=== PATIENT | male | born 1990 | race Asian ===

== ENCOUNTER 2017-12-26 03:02 | Inpatient (IN) | payer MEDICAID ==
[~2017-12-26] VITALS: Ht 175.3 cm; Wt 68.1 kg
[2017-12-26] MEDS ORDERED: normal saline 1000ML IV soln IVB ONE (03:30)
[2017-12-26] MEDS ORDERED: ondansetron/PF 4mg/2ml inj IV ONE (03:30)
[2017-12-26] MEDS ORDERED: morphine 4 MG/ML inj SYRINge IV PRN (03:30)
[2017-12-26 03:46] LABS: CLARITY,URINE CLEAR (Clear); COLOR,URINE YELLOW (Yellow); GLUCOSE, URINE NEGATIVE (Neg); KETONES,URINE 15 mg/dl (Neg); LEUKOCYTE ESTERASE ,URINE NEGATIVE (Neg); NITRITES, URINE NEGATIVE (Neg); OCCULT BLOOD,URINE NEGATIVE (Neg); PROTEIN,URINE NEGATIVE (Neg); UA COLLECTION TYPE CLN CATCH MIDSTREAM
[2017-12-26 03:53] LABS: BASOPHILS # (AUTO) 0.1 X10'3 (0-0.2); BASOPHILS % (AUTO) 0.6 % (0-1); EOSINOPHILS % (AUTO) 0.1 % (0-6); HEMOGLOBIN 15.1 g/dl (14.0-17.9); LYMPHOCYTES # (AUTO) 1.2 X10'3 (1.1-4.8); MEAN CORPUSCULAR HEMOGLOBIN 29.3 PG (27.0-31.0); MEAN CORPUSCULAR HGB CONC 34.3 % (33.0-36.5); MEAN CORPUSCULAR VOLUME 85.3 FL (78-98); MEAN PLATELET VOLUME 8.1 FL (7.4-10.4); MONOCYTES % (AUTO) 8.4 % (2-12); NEUTROPHILS # (AUTO) 9.9 X10'3 (1.8-7.7); NEUTROPHILS % (AUTO) 80.9 % (42-75); PLATELET COUNT 257 X10'3 (140-440); RED BLOOD COUNT 5.16 X10'6 (4.70-6.10); RED CELL DISTRIBUTION WIDTH 11.6 % (11.5-14.5); WHITE BLOOD COUNT 12.3 X10'3 (4.5-11.0)
[2017-12-26 04:08] LABS: ALANINE AMINOTRANSFERASE 21 U/L (12-78); ALBUMIN 3.5 G/DL (3.4-5.0); ALBUMIN/GLOBULIN RATIO 0.8 (1.1-1.5); ALKALINE PHOSPHATASE 78 IU/L (46-116); ANION GAP 8 (8-16); ASPARTATE AMINO TRANSFERASE 17 U/L (10-37); BILIRUBIN,TOTAL 0.8 MG/DL (0.1-1.0); BLOOD UREA NITROGEN 14 MG/DL (7-18); BUN/CREATININE RATIO 12.1 (5.4-32.0); CALCIUM 8.9 MG/DL (8.5-10.1); CHLORIDE 99 MMOL/L (99-107); CREATININE 1.16 MG/DL (0.60-1.10); GLUCOSE 117 MG/DL (70-104); LIPASE 77 U/L (73-393); POTASSIUM 4.2 MMOL/L (3.5-5.1); SODIUM 135 MMOL/L (135-145); TOTAL CARBON DIOXIDE 28.1 MMOL/L (24-32); TOTAL PROTEIN 7.8 G/DL (6.4-8.2); eGFR 76 ML/MIN
[2017-12-26] MEDS ORDERED: piperacillin/tazo 4.5gm/100ml 100 ML IV SCH (04:10)
[2017-12-26] MEDS ORDERED: NAPR220T67 PO (04:23)
[2017-12-26] MEDS ORDERED: morphine 2 MG/ML inj. syringe IV PRN (05:15)
[2017-12-26] MEDS ORDERED: ondansetron/PF 4mg/2ml inj IV PRN (05:15)
[2017-12-26] MEDS ORDERED: mag hydrox/Alum hydrox/simeth 30ml oral suspension PO PRN (05:15)
[2017-12-26] MEDS ORDERED: HYDROmorphone 1 mg/ml syringe IV PRN ×2 (05:15)
[2017-12-26] MEDS ORDERED: HYDROcodone/acetaminophen 5mg/325mg tablet PO PRN (05:15)
[2017-12-26] MEDS ORDERED: acetaminophen 325mg tablet PO PRN (05:15)
[2017-12-26] MEDS ORDERED: HYDROcodone/acetaminophen 10/325mg tab PO PRN (05:15)
[2017-12-26] MEDS ORDERED: acetaminophen 650mg rectal suppository RC PRN (05:15)
[2017-12-26] MEDS ORDERED: bisacodyl 10mg suppository rectal RC PRN (05:15)
[2017-12-26] MEDS ORDERED: magnesium hydroxide 30ml (MOM) UD suspension PO PRN (05:15)
[2017-12-26] MEDS ORDERED: diphenhydrAMINE 50 mg/ml inj IV PRN (05:15)
[2017-12-26] MEDS ORDERED: diphenhydrAMINE 25mg capsule PO PRN (05:15)
[2017-12-26] MEDS: normal saline 1000ml 1,000 ML IV SCH ×2 (05:49→17:21)
[2017-12-26] MEDS: pantoprazole 40 MG vial IV SCH (07:41)
[2017-12-26 07:54] VITALS: BP 117/69
[2017-12-26] MEDS: docusate sod 100mg capsule PO SCH ×2 (08:27→19:55)
[2017-12-26 12:00] VITALS: BP 108/60
[2017-12-26] MEDS: piperacillin/tazo 3.375gm/50ml 50 ML IV SCH ×2 (12:08→19:55)
[2017-12-26] MEDS: morphine 2 MG/ML inj. syringe IV PRN ×2 (12:19→17:29)
[2017-12-26] MEDS: acetaminophen 325mg tablet PO PRN (16:08)
[2017-12-26 19:50] VITALS: BP 109/63
[2017-12-26 23:44] VITALS: BP 107/60
[2017-12-27] VITALS (16 sets, daily range): BP systolic 99–130; BP diastolic 61–82
[2017-12-27] MEDS: normal saline 1000ml 1,000 ML IV SCH ×3 (02:38→21:29)
[2017-12-27] MEDS: piperacillin/tazo 3.375gm/50ml 50 ML IV SCH ×3 (03:40→21:10)
[2017-12-27 04:43] LABS: BASOPHILS % (AUTO) 0.1 % (0-1); EOSINOPHILS % (AUTO) 0 % (0-6); HEMATOCRIT 38.6 % (42.0-52.0); HEMOGLOBIN 13.1 g/dl (14.0-17.9); LYMPHOCYTES # (AUTO) 0.7 X10'3 (1.1-4.8); LYMPHOCYTES % (AUTO) 7.4 % (21-51); MEAN CORPUSCULAR HGB CONC 33.9 % (33.0-36.5); MEAN CORPUSCULAR VOLUME 85.5 FL (78-98); MEAN PLATELET VOLUME 8.3 FL (7.4-10.4); MONOCYTES % (AUTO) 9.7 % (2-12); NEUTROPHILS # (AUTO) 8.2 X10'3 (1.8-7.7); NEUTROPHILS % (AUTO) 82.8 % (42-75); PLATELET COUNT 232 X10'3 (140-440); RED BLOOD COUNT 4.51 X10'6 (4.70-6.10); RED CELL DISTRIBUTION WIDTH 11.5 % (11.5-14.5); WHITE BLOOD COUNT 9.9 X10'3 (4.5-11.0)
[2017-12-27 04:55] LABS: ALANINE AMINOTRANSFERASE 14 U/L (12-78); ALBUMIN 2.6 G/DL (3.4-5.0); ALBUMIN/GLOBULIN RATIO 0.7 (1.1-1.5); ALKALINE PHOSPHATASE 74 IU/L (46-116); ANION GAP 12 (8-16); ASPARTATE AMINO TRANSFERASE 11 U/L (10-37); BILIRUBIN,TOTAL 0.9 MG/DL (0.1-1.0); BLOOD UREA NITROGEN 12 MG/DL (7-18); BUN/CREATININE RATIO 11.5 (5.4-32.0); CALCIUM 8.2 MG/DL (8.5-10.1); CHLORIDE 101 MMOL/L (99-107); CREATININE 1.04 MG/DL (0.60-1.10); GLUCOSE 90 MG/DL (70-104); POTASSIUM 3.8 MMOL/L (3.5-5.1); SODIUM 136 MMOL/L (135-145); TOTAL CARBON DIOXIDE 22.9 MMOL/L (24-32); TOTAL PROTEIN 6.5 G/DL (6.4-8.2); eGFR 86 ML/MIN
[2017-12-27] MEDS: pantoprazole 40 MG vial IV SCH (07:51)
[2017-12-27] MEDS: docusate sod 100mg capsule PO SCH ×2 (07:52→21:10)
[2017-12-27] MEDS: acetaminophen 325mg tablet PO PRN (07:58)
[2017-12-27 10:45] LABS: PRE OP INR 1.3 INR; PRE OP PROTIME 13.4 SECONDS (9.0-12.0)
[2017-12-27] MEDS ORDERED: BUPIVAcaine/PF 2.5mg/ml (0.25%) 10ml vial ONE (12:49)
[2017-12-27] MEDS ORDERED: ringers solution, lacted 1,000 ML IV SCH (12:52)
[2017-12-27] MEDS ORDERED: meperidine/PF 25mg/ml syringe IV PRN ×2 (12:55)
[2017-12-27] MEDS ORDERED: ondansetron/PF 4mg/2ml inj IV PRN (12:55)
[2017-12-27] MEDS ORDERED: labetalol 20mg/4ml (5mg/ml) syringe IV PRN (12:55)
[2017-12-27] MEDS ORDERED: hydrALAZINE 20mg/ml inj. IV PRN (12:55)
[2017-12-27] MEDS ORDERED: morphine 4 MG/ML inj SYRINge IV PRN ×2 (12:55)
[2017-12-27] MEDS ORDERED: midazolam 2 mg/2 ml injection ONE (13:16)
[2017-12-27] MEDS ORDERED: meperidine/PF 50mg/ml syringe ONE ×2 (13:17)
[2017-12-27] MEDS ORDERED: rocuronium 10mg/ml inj IV ONE (13:18)
[2017-12-27] MEDS ORDERED: propofol inj 20 ML IV ONE (13:18)
[2017-12-27] MEDS ORDERED: LIDOcaine 2% (20mg/ml) 5ml vial ONE (13:18)
[2017-12-27] MEDS ORDERED: ondansetron/PF 4mg/2ml inj ONE (13:22)
[2017-12-27] MEDS ORDERED: sevoflurane 250ml liquid IH ONE (13:22)
[2017-12-27] MEDS ORDERED: dexamethasone sod phosphate 4mg/ml inj. ONE (13:24)
[2017-12-27] MEDS ORDERED: neostigmine methylsulfate 1 MG/ML 10ml vial ONE (13:34)
[2017-12-27] MEDS ORDERED: glycopyrrolate 0.2mg/ml inj ONE (13:34)
[2017-12-27] MEDS: lactobacillus rhamnosus 10,000 MMU CELLS/CAPSULE PO SCH (21:10)
[2017-12-28] VITALS: BP 109/69
[2017-12-28] MEDS: piperacillin/tazo 3.375gm/50ml 50 ML IV SCH ×3 (04:01→19:28)
[2017-12-28 04:58] LABS: BASOPHILS % (AUTO) 0.1 % (0-1); EOSINOPHILS # (AUTO) 0.2 X10'3 (0-0.9); EOSINOPHILS % (AUTO) 1.4 % (0-6); HEMATOCRIT 39.8 % (42.0-52.0); HEMOGLOBIN 13.5 g/dl (14.0-17.9); LYMPHOCYTES # (AUTO) 0.6 X10'3 (1.1-4.8); LYMPHOCYTES % (AUTO) 5.4 % (21-51); MEAN CORPUSCULAR HEMOGLOBIN 29.2 PG (27.0-31.0); MEAN CORPUSCULAR HGB CONC 33.8 % (33.0-36.5); MEAN CORPUSCULAR VOLUME 86.1 FL (78-98); MEAN PLATELET VOLUME 8.3 FL (7.4-10.4); MONOCYTES # (AUTO) 0.5 X10'3 (0-0.9); MONOCYTES % (AUTO) 4.5 % (2-12); NEUTROPHILS # (AUTO) 10.4 X10'3 (1.8-7.7); NEUTROPHILS % (AUTO) 88.6 % (42-75); PLATELET COUNT 250 X10'3 (140-440); RED BLOOD COUNT 4.62 X10'6 (4.70-6.10); RED CELL DISTRIBUTION WIDTH 11.6 % (11.5-14.5); WHITE BLOOD COUNT 11.7 X10'3 (4.5-11.0)
[2017-12-28 05:10] LABS: INR 1.3 INR; PARTIAL THROMBOPLASTIN TIME 34 SECONDS (22-32); PROTHROMBIN TIME 13.4 SECONDS (9.0-12.0)
[2017-12-28 05:12] LABS: ALANINE AMINOTRANSFERASE 14 U/L (12-78); ALBUMIN 2.7 G/DL (3.4-5.0); ALBUMIN/GLOBULIN RATIO 0.6 (1.1-1.5); ALKALINE PHOSPHATASE 73 IU/L (46-116); ANION GAP 11 (8-16); ASPARTATE AMINO TRANSFERASE 10 U/L (10-37); BILIRUBIN,TOTAL 0.6 MG/DL (0.1-1.0); BLOOD UREA NITROGEN 9 MG/DL (7-18); BUN/CREATININE RATIO 10.1 (5.4-32.0); CALCIUM 8.7 MG/DL (8.5-10.1); CHLORIDE 100 MMOL/L (99-107); CREATININE 0.89 MG/DL (0.60-1.10); GLUCOSE 163 MG/DL (70-104); POTASSIUM 4.1 MMOL/L (3.5-5.1); SODIUM 136 MMOL/L (135-145); TOTAL CARBON DIOXIDE 24.8 MMOL/L (24-32); eGFR > 90 ML/MIN
[2017-12-28 07:00] VITALS: BP 111/73
[2017-12-28] MEDS: docusate sod 100mg capsule PO SCH ×2 (07:52→19:27)
[2017-12-28] MEDS: normal saline 1000ml 1,000 ML IV SCH ×2 (07:52→19:27)
[2017-12-28] MEDS: pantoprazole 40 MG vial IV SCH (07:52)
[2017-12-28] MEDS: lactobacillus rhamnosus 10,000 MMU CELLS/CAPSULE PO SCH ×2 (07:52→19:27)
[2017-12-28 11:00] VITALS: BP 106/72
[2017-12-28 18:00] VITALS: BP 98/59
[2017-12-29] VITALS: BP 103/69
[2017-12-29] MEDS: piperacillin/tazo 3.375gm/50ml 50 ML IV SCH ×3 (03:42→19:11)
[2017-12-29] MEDS: normal saline 1000ml 1,000 ML IV SCH ×3 (03:42→15:58)
[2017-12-29 05:23] LABS: BASOPHILS % (AUTO) 0.2 % (0-1); EOSINOPHILS % (AUTO) 0 % (0-6); HEMATOCRIT 36.2 % (42.0-52.0); HEMOGLOBIN 12.2 g/dl (14.0-17.9); LYMPHOCYTES # (AUTO) 2.1 X10'3 (1.1-4.8); LYMPHOCYTES % (AUTO) 21.1 % (21-51); MEAN CORPUSCULAR HEMOGLOBIN 29.3 PG (27.0-31.0); MEAN CORPUSCULAR HGB CONC 33.8 % (33.0-36.5); MEAN CORPUSCULAR VOLUME 86.7 FL (78-98); MEAN PLATELET VOLUME 8.5 FL (7.4-10.4); MONOCYTES # (AUTO) 0.8 X10'3 (0-0.9); NEUTROPHILS # (AUTO) 7.1 X10'3 (1.8-7.7); NEUTROPHILS % (AUTO) 70.7 % (42-75); PLATELET COUNT 248 X10'3 (140-440); RED BLOOD COUNT 4.17 X10'6 (4.70-6.10); RED CELL DISTRIBUTION WIDTH 11.9 % (11.5-14.5)
[2017-12-29 06:30] LABS: ALANINE AMINOTRANSFERASE 17 U/L (12-78); ALBUMIN 2.3 G/DL (3.4-5.0); ALBUMIN/GLOBULIN RATIO 0.6 (1.1-1.5); ALKALINE PHOSPHATASE 58 IU/L (46-116); ANION GAP 7 (8-16); ASPARTATE AMINO TRANSFERASE 14 U/L (10-37); BILIRUBIN,TOTAL 0.4 MG/DL (0.1-1.0); BLOOD UREA NITROGEN 14 MG/DL (7-18); BUN/CREATININE RATIO 15.9 (5.4-32.0); CALCIUM 8.4 MG/DL (8.5-10.1); CHLORIDE 105 MMOL/L (99-107); CREATININE 0.88 MG/DL (0.60-1.10); GLUCOSE 115 MG/DL (70-104); POTASSIUM 3.8 MMOL/L (3.5-5.1); SODIUM 140 MMOL/L (135-145); TOTAL CARBON DIOXIDE 27.7 MMOL/L (24-32); TOTAL PROTEIN 6.1 G/DL (6.4-8.2); eGFR > 90 ML/MIN
[2017-12-29 07:36] VITALS: BP 99/66
[2017-12-29] MEDS: lactobacillus rhamnosus 10,000 MMU CELLS/CAPSULE PO SCH ×2 (07:44→19:11)
[2017-12-29] MEDS: docusate sod 100mg capsule PO SCH ×2 (07:45→19:11)
[2017-12-29] MEDS: pantoprazole 40 MG vial IV SCH (07:45)
[2017-12-29] MEDS: acetaminophen 325mg tablet PO PRN (07:53)
[2017-12-29 12:06] VITALS: BP 99/58
[2017-12-29 18:00] VITALS: BP 101/64
[2017-12-30] VITALS: BP 101/60
[2017-12-30] MEDS: acetaminophen 325mg tablet PO PRN (01:54)
[2017-12-30] MEDS: normal saline 1000ml 1,000 ML IV SCH (03:11)
[2017-12-30] MEDS: piperacillin/tazo 3.375gm/50ml 50 ML IV SCH (04:16)
[2017-12-30 05:13] LABS: BASOPHILS % (AUTO) 0.1 % (0-1); EOSINOPHILS # (AUTO) 0.1 X10'3 (0-0.9); EOSINOPHILS % (AUTO) 1.4 % (0-6); HEMATOCRIT 38.4 % (42.0-52.0); LYMPHOCYTES # (AUTO) 2.8 X10'3 (1.1-4.8); LYMPHOCYTES % (AUTO) 34.1 % (21-51); MEAN CORPUSCULAR HEMOGLOBIN 29.1 PG (27.0-31.0); MEAN CORPUSCULAR HGB CONC 33.8 % (33.0-36.5); MEAN PLATELET VOLUME 7.9 FL (7.4-10.4); MONOCYTES # (AUTO) 0.6 X10'3 (0-0.9); MONOCYTES % (AUTO) 7.1 % (2-12); NEUTROPHILS # (AUTO) 4.7 X10'3 (1.8-7.7); NEUTROPHILS % (AUTO) 57.3 % (42-75); PLATELET COUNT 308 X10'3 (140-440); RED BLOOD COUNT 4.47 X10'6 (4.70-6.10); RED CELL DISTRIBUTION WIDTH 12.1 % (11.5-14.5); WHITE BLOOD COUNT 8.3 X10'3 (4.5-11.0)
[2017-12-30 05:37] LABS: ALANINE AMINOTRANSFERASE 22 U/L (12-78); ALBUMIN 2.6 G/DL (3.4-5.0); ALBUMIN/GLOBULIN RATIO 0.6 (1.1-1.5); ALKALINE PHOSPHATASE 61 IU/L (46-116); ANION GAP 10 (8-16); ASPARTATE AMINO TRANSFERASE 13 U/L (10-37); BILIRUBIN,TOTAL 0.4 MG/DL (0.1-1.0); BLOOD UREA NITROGEN 7 MG/DL (7-18); CALCIUM 8.6 MG/DL (8.5-10.1); CHLORIDE 103 MMOL/L (99-107); CREATININE 0.88 MG/DL (0.60-1.10); GLUCOSE 94 MG/DL (70-104); POTASSIUM 3.6 MMOL/L (3.5-5.1); SODIUM 140 MMOL/L (135-145); TOTAL CARBON DIOXIDE 26.6 MMOL/L (24-32); TOTAL PROTEIN 6.7 G/DL (6.4-8.2); eGFR > 90 ML/MIN
[2017-12-30 07:21] VITALS: BP 109/75
[2017-12-30] MEDS ORDERED: pantoprazole 40mg Tablet.DR PO SCH (07:30)
[2017-12-30] MEDS: docusate sod 100mg capsule PO SCH (08:01)
[2017-12-30] MEDS: lactobacillus rhamnosus 10,000 MMU CELLS/CAPSULE PO SCH (08:01)
[2017-12-30] MEDS ORDERED: AMOX-580 PO (09:00)
[2017-12-30 12:27] VITALS: BP 99/63
== END 2017-12-30 12:36 | disposition home or self-care (01) | DRG 233 ==
LOC: ER 03:03 → ED HOLD 05:14 → SUR 3N 07:26 → PACU 12-27 13:43 → SUR 3N 12-27 15:09
PROVIDERS: ADMIT Family Medicine; ATTEND Internal Medicine
PROC: 0DTJ4ZZ Resection of Appendix, Percutaneous Endoscopic Approach (ICD-10-PCS; principal; 2017-12-27 13:22)
DX: K35.33 Acute appendicitis with perforation, localized peritonitis, and gangrene, with abscess (principal); N17.9 Acute kidney failure, unspecified; E44.0 Moderate protein-calorie malnutrition; E86.0 Dehydration; K56.41 Fecal impaction; Z68.22 Body mass index [BMI] 22.0-22.9, adult; Z79.899 Other long term (current) drug therapy
CPT/HCPCS: 36415; 74176; 80053; 81003; 83605; 83690; 85025; 85610; 85730; 87040; 87070; 96365; 96375; 99285; A7000; C9113; G0378; J1100; J1170; J2001; J2175; J2250; J2270; J2405; J2543; J2704; J2710; J3490; J7030; J7120